=== PATIENT | male | born 1955 | race Caucasian/White ===

== ENCOUNTER 2018-02-12 00:28 | Inpatient (IN) | payer MEDICARE, BC ==
[2018-02-12] VITALS (73 sets, daily range): BP systolic 61–160; BP diastolic 34–116; BMI 27.7
[~2018-02-12] VITALS: Ht 172.7 cm; Wt 105.7 kg
--- NOTE | ~2018-02-12 | HEMODYNAMI ---
PATIENT:MIR ARMENTA MEDICAL RECORD: [id number] : 53 [id number] ADMISSION DATE: 02/12/18 Generatedon:02/12/20182:49 Patient name: MIR ARMENTA Patient #: [id number] SSN: DO B: 1955 Date of study: 02/12/2018 Page: Of Hemodynamic Procedure Report Patient Data Patient Demographics Procedure consent was obtained First Name: MIR Gender: Male Last Name: KATHI : 1955 [facility] Initial: STEFFANY Age: 62 year(s) Patient #: [id number] Race: Additional ID: [id number] Contact details Address: [address] [place] [address] State: [place] City: [place] Zip code: [address] Past Medical History Allergies: No known allergies Admission Admission Data Admission Date: 02/12/2018 Admission Time: 0:28 Admit Source: Emergency department Procedure Procedure Types Cath Procedure Diagnostic Procedure LHC LHC w/Coronaries Sedation Charges Moderate Sedation up to 30 minutes PCI Procedure AMI/SVG/SIDE PANEL PADDER PTCA or Stent AMI-BMS/DAMON Initial Procedure Description Procedure Date Procedure Date: 02/12/2018 Procedure Start Time: 1:27 Procedure End Time: 2:30 Procedure Staff Name Function Fernando Chang MD Performing Physician Marci So RT Monitor Aida Ornelas RT Scrub Deloris Arreola RN Nurse Procedure Data Cath Procedure Fluoroscopy Diagnostic fluoroscopy Total fluoroscopy Time: 9.6 time: 9.6 min min Diagnostic fluoroscopy Total fluoroscopy dose: 908 dose: 908 mGy mGy Contrast Material Contrast Material Type Amount (ml) Isovue 300 91 Entry Location Entry Primary Successful Side Size Upsize Upsize Entry Closure Succes sful Closure Location (Fr) 1 (Fr) 2 (Fr) Remarks Device Remarks Femoral Right 6 Fr Exoseal artery Short Estimated blood loss: 5 ml Diagnostic catheters Device Type Used For End Catheter Placement MULTIPACK JL 4.0 5Fr Left Coronary catheter Angiography MULTIPACK 3DRC 5Fr Right Coronary catheter Angiography DIAGNOSTIC IM 5Fr Multi-vessel catheter ([id number]) Angiography Procedure Complications No complications Procedure Medications Medication Administration Route Dosage 0.9% NaCl I.V. 100 ml/hr Oxygen etCO2 Nasal cannula 2 l/min Lidocaine 2% added to field 20 Heparin Flush Bag added to field 2 bags (1000units/500ml NS) Versed I.V. 2 mg Fentanyl I.V. 100 mcg Versed I.V. 2 mg Fentanyl I.V. 100 mcg Versed I.V. 2 mg Dopamine I.V. drip mcg/kg/min (400mg/250ml D5W) Heparin Bolus I.V. 8300 units Integrilin (Bolus I.V. 7.3 ml 2mg/ml) Neosynephrine I.V. drip 100 mcg/kg/min (20mg/250ml D5W) Dopamine I.V. drip 15 mcg/kg/min (400mg/250ml D5W) Versed I.V. 2 mg Integrilin Drip I.V. drip 6.5 ml/hr (75mg/100ml) Hemodynamics Rest Heart Rate: 33 (bpm) Snapshots Pre Cath Intra NCS Post Cath Vital Signs Time Heart Resp SPO2 etCO2 NIBP (mmHg) Rhythm Pain Sedation Rate (ipm) (%) (mmHg) Status Level (bpm) 1:23:00 36 29 98 32 72/41(65) NSR 0 (11) 10(A) , No pain 1:27:59 34 32 100 32.6 68/54(64) NSR 0 (11) 10(A) , No pain 1:29:23 32 30 100 33 Time NSR 0 (11) 10(A) Exceeded , No pain 1:35:50 79 24 100 34.3 Time NSR 0 (11) 10(A) Exceeded , No pain 1:42:11 68 32 98 34 75/46(67) Paced 0 (11) 10(A) , No pain 1:50:23 96 32 94 0 92/74(85) Paced 0 (11) 9(A) , No pain 1:55:22 106 20 98 0 Measuring Paced 0 (11) 2(A) , No pain 1:56:46 111 21 97 0 Time Paced 0 (11) 2(A) Exceeded , No pain 2:07:39 103 13 95 0 112/84(105) Paced 0 (11) 2(A) , No pain 2:11:47 57 20 90 0 125/85(113) Paced 0 (11) 2(A) , No pain 2:16:46 71 18 89 0 Measuring Paced 0 (11) 2(A) , No pain 2:18:08 39 16 91 0 Time Paced 0 (11) 2(A) Exceeded , No pain 2:23:07 129 20 97 0 Measuring Paced 0 (11) 2(A) , No pain 2:24:29 111 19 98 0 Time Paced 0 (11) 2(A) Exceeded , No pain 2:28:59 110 18 90 0 140/98(112) Paced 0 (11) 2(A) , No pain 2:36:30 86 17 91 0 92/64(74) Paced 0 (11) 2(A) , No pain 2:44:56 83 22 75 0 90/60(74) Paced 0 (11) 2(A) , No pain Medications Time Medication Route Dose Verified Delivered Reason N otes Effectiveness by by 1:26:31 0.9% NaCl I.V. 100 ml/hr Fernando Deloris used for Bernardo Arreola longshore equipment operator 1:26:39 Oxygen etCO2 2 l/min Fernando Deloris used for Nasal Bernardo Arreola procedure cannula RN 1:26:45 Lidocaine 2% added 20ml vial Fernando Fernando for local to Bernardo Chang MD anesthetic field 1:26:50 Heparin Flush added 2 bags Fernando Fernando used for Bag to Bernardo Chang MD procedure (1000units/500ml field NS) 1:26:58 Versed I.V. 2 mg Fernando Deloris for sedation Bernardo Arreola RN 1:27:04 Fentanyl I.V. 100 mcg Fernando Deloris for sedation Bernardo Arreola RN 1:32:37 Versed I.V. 2 mg Fernando Deloris for sedation Bernardo Arreola RN 1:32:48 Fentanyl I.V. 100 mcg Fernando Deloris for sedation Bernardo Arreola RN 1:37:11 Versed I.V. 2 mg Fernando Deloris for sedation Bernardo Arreola RN 1:42:06 Versed I.V. 2 mg Fernando Deloris for sedation Bernardo Arreola RN 1:46:43 Dopamine I.V. mcg/kg/min Fernando Deloris Per physician (400mg/250ml drip Bernardo Arreola D5W) RN 1:48:03 Heparin Bolus I.V. 8300 units Fernando Deloris for v erified Bernardo Arreola anticoagulation with Dr. ISMAEL Chang 1:50:16 Dopamine I.V. 15 Fernando Deloris Per physician (400mg/250ml drip mcg/kg/min Bernardo Arreola D5W) RN 2:25:27 Integrilin I.V. 7.3 ml Fernando Deloris for (Bolus 2mg/ml) Bernardo Arreola anticoagulation RN 2:25:42 Neosynephrine I.V. 100 Fernando Deloris Per physician (20mg/250ml D5W) drip mcg/kg/min Bernardo Arreola RN 2:44:27 Integrilin Drip I.V. 6.5 ml/hr Fernando Deloris for (75mg/100ml) andrew Arreola anticoagulation legal administrator Log Time Note 1:06:54 Informed consent obtained and on chart 1:07:11 Deloris Arreola RN sent for patient. Start room use. 1:07:12 Time tracking: Regular hours (M-F 7:00 - 5:00) 1:07:19 Plan of Care:Hemodynamics will remain stable., Cardiac rhythm will remain stable., Comfort level will be maintained., Respiratory function will remain adequate., Patient/ family verbilizes understanding of procedure., Procedure tolerated without complication., Recovers from procedure without complications.. 1:12:15 Diagnostic Cath Status : Emergency 1:12:24 Admit Source: Emergency department 1:15:16 Patient received from ED to CCL 1 Alert and oriented. Tansferred to table in Supine position. 1:15:17 Warm blankets applied, and prabhjot hugger turned on for patient comfort. 1:15:17 Correct patient and procedure confirmed by team. 1:15:18 ECG and BP/O2 sat monitors applied to patient. 1:21:43 Vital chart was started 1:21:44 Full Disclosure recording started 1:21:49 H&P Date Dictated: 02/12/2018 Within 30 days and on chart., H&P Addendum completed by physician on day of procedure. (MUST COMPLETE FOR ALL OUTPATIENTS). 1:21:51 Pre-procedure instructions explained to patient. 1::51 Pre-op teaching completed and patient verbalized understanding. 1::53 Family in patients room. 1::55 Patient NPO since Midnight. 1::49 Is the patient allergic to Iodine/contrast media? No. 1::51 Was the patient premedicated? No 1:24:18 Is patient on blood thinner?Yes 1:24:21 ACC The patient was administered the following blood thiners within the last 24 hours: ACCPlavix 1:24:24 Patient diabetic? Yes. 1:24:25 If diabetic: On Metformin? No 1:24:27 Previous problem with sedation/anesthesia? No ? 1:24:29 Snore? Yes 1:24:30 Sleep apnea? Yes 1:24:31 Deviated septum? No 1:24:32 Opens mouth fully? Yes 1:24:33 Sticks out tongue? Yes 1:24:37 Airway obstruction? Yes copd 1:24:40 Dentures? No ? 1:24:45 Pre procedure: right dorsailis pedis pulse 2+ Normal; easily identifiable; not easily obliterated 1::49 Pre procedure: left dorsailis pedis pulse 2+ Normal; easily identifiable; not easily obliterated 1::55 Patient pain scale 6/10 ?. 1:25:37 IV patent on arrival in left forearm with 0.9% NaCl at O. 1:25:40 Lab results completed and on chart. 1:25:45 Right groin area was prepped with chlora-prep and draped in sterile fashion 1:25:46 Alarms reviewed by R. N. 1:25:47 Sharps counted by scrub and verified by R.N. 1:25:50 Physician arrived 1:25:50 --------ALL STOP TIME OUT------ 1::51 Final Timeout: patient, procedure, and site verified with staff and physician. All members of the team are in agreement. 1:25:56 Right groin site verified by team. 1:26:00 Physical assessment completed. ASA score P 3 - A patient with severe systemic disease as per Fernando Chang MD. 1:26:05 Sedation plan: IV Moderate Sedation Medication:Versed, Fentanyl 1:26:13 Use device set Temporary Pacemaker 1:26:15 5Fr J Tip Temporary Pacing Catheter ([id number]) opened to sterile field. 1:26:15 2-0 Silk 685H opened to sterile field. 1:26:16 SHEATH 6FR Rule (KEB209) opened to sterile field. 1:26:31 0.9% NaCl 100 ml/hr I.V. was administered by Deloris Arreola RN; used for procedure; 1:26:39 Oxygen 2 l/min etCO2 Nasal cannula was administered by Deloris Arreola RN; used for procedure; 1:26:45 Lidocaine 2% 20ml vial added to field was administered by Fernando Chang MD; for local anesthetic; 1:26:50 Heparin Flush Bag (1000units/500ml NS) 2 bags added to field was administered by Fernando Chang MD; used for procedure; 1:26:58 Versed 2 mg I.V. was administered by Deloris Arreola RN; for sedation; 1:27:04 Fentanyl 100 mcg I.V. was administered by Deloris Arreola RN; for sedation; 1:27:36 Procedure started. 1:27:59 Local anesthetic to right femoral artery with Lidocaine 2% by Fernando Chang MD.INITIAL ACCESS ONLY 1:28:09 A 6 Fr Short sheath was inserted into the Right Femoral artery 1:29:54 Use device set Femoral Dx 1:29:56 ACIST Syringe (98314) opened to sterile field. 1:29:56 Bag Decanter (2002) opened to sterile field. 1:29:57 Medline Cath Pack ([id number]) opened to sterile field. 1:29:57 DIAGNOSTIC WIRE .035 260cm J wire (699465) opened to sterile field. 1:29:58 ACIST Hand Control (84867) opened to sterile field. 1:29:59 ACIST Manifold (46656) opened to sterile field. 1:29:59 DIAGNOSTIC Multipack 5Fr catheter set (VM3075) opened to sterile field. 1:30:00 Quick Combo opened to sterile field. 1:30:00 Tegaderm 4 x 4 (1626W) opened to sterile field. 1:30:15 SHEATH 6FR Rule (WLE673) opened to sterile field. 1:30:22 Temporary pacer inserted 1:30:40 Zero performed for pressure channel P1 1:30:46 Zero performed for pressure channel P1 1:31:38 Baseline sample Acquired. 1:32:37 Versed 2 mg I.V. was administered by Deloris Arreola RN; for sedation; 1:32:48 Fentanyl 100 mcg I.V. was administered by Deloris Arreola RN; for sedation; 1:34:22 Temporary pacer turned on with the following settings: Rate 80, MA 10, Mode: Demand. 1:36:20 A MULTIPACK JL 4.0 5Fr catheter was advanced over the wire and used for Left Coronary Angiography. 1:36:26 LCA angiography performed. 1:36:29 Injector settings: Ml/sec: 3, Volume: 6, 1:36:46 Catheter removed. 1:36:51 A MULTIPACK 3DRC 5Fr catheter was advanced over the wire and used for Right Coronary Angiography. 1:37:11 Versed 2 mg I.V. was administered by Deloris Arreola RN; for sedation; 1:37:45 RCA angiography performed. 1:37:48 Injector settings: Ml/sec: 3, Volume: 6, 1:38:34 Catheter removed. 1:39:12 GUIDE 6FR AR 1.0 catheter ([id number]) opened to sterile field. 1:39:13 TUBING High Pressure Extension Tubing (Chang) ([id number]) opened to sterile field. 1:39:14 BMW 300cm Boles 2 J wire (5413882Y) opened to sterile field. 1:39:15 INFLATOR Merit BasixCompak (LK6357) opened to sterile field. 1:39:29 A DIAGNOSTIC IM 5Fr catheter (310134R) was advanced over the wire and used for Multi-vessel Angiography. 1:39:53 MENDES angiography performed. 1:40:17 WHISPER 300cm guide wire (5826000PL) opened to sterile field. 1:40:32 Catheter removed. 1:42:06 Versed 2 mg I.V. was administered by Deloris Arreola RN; for sedation; 1:43:21 6 Fr ar 2 guide catheter was inserted over the wire 1:44:10 Guide Catheter removed. unable to cannulate vessel. 1:44:46 GUIDE 6FR AR 1.0 SH catheter ([id number]) opened to sterile field. 1:44:55 6 Fr ar 1 sh guide catheter was inserted over the wire 1:46:43 Dopamine (400mg/250ml D5W) mcg/kg/min I.V. drip was administered by Deloris Arreola RN; Per physician; 1:47:02 whisper wire advanced. 1:47:04 Wire advanced across lesion. 1:48:03 Heparin Bolus 8300 units I.V. was administered by Deloris Arreola RN; for anticoagulation; verified with Dr. Chang 1:49:19 Inflate balloon Inflation number: 1 A EMERGE OTW 3.0 x 20 balloon ([id number]) was prepped and advanced across the Prox RCA, then inflated to 12 BRANDI for 0:10 (min:sec). 1:50:04 Inflation number: 2 The EMERGE OTW 3.0 x 20 balloon ([id number]) was reinflated across the Prox RCA, to 12 BRANDI for 0:10 (min:sec). 1:50:16 Dopamine (400mg/250ml D5W) 15 mcg/kg/min I.V. drip was administered by Deloris Arreola RN; Per physician; 1:50:43 Inflation number: 1 The EMERGE OTW 3.0 x 20 balloon ([id number]) was reinflated across the Mid RCA, to 14 BRANDI for 0:10 (min:sec). 1:51:23 Inflation number: 2 The EMERGE OTW 3.0 x 20 balloon ([id number]) was reinflated across the Mid RCA, to 14 BRANDI for 0:10 (min:sec). 1:52:09 Temporary pacer turned on with the following settings: Rate 100, MA 10, Mode: Demand. 1:53:02 cpr started 1:58:38 code blue called 1:59:28 patient intubated;continuing cpr 2:03:06 1 mg epi given 2:03:55 cpr paused; 2:04:39 no pulse; cpr continued 2:08:14 cpr stopped; 2:08:57 RCA angiography performed. 2:09:01 Injector settings: Ml/sec: 3, Volume: 6, 2:10:31 Balloon removed over the wire. 2:13:09 Place stent Inflation Number: 3 A VERNA RX 3.0 x 26 stent ([id number]) was prepped and advanced across the Mid RCA. The stent was deployed at 14 BRANDI for 0:10 (min:sec). 2:13:46 Inflation number: 4 The stent balloon was then re-inflated across the Mid RCA to 14 BRANDI for 0:10 (min:sec). 2:16:24 cpr started 2:23:42 cpr paused; 2:25:27 Integrilin (Bolus 2mg/ml) 7.3 ml I.V. was administered by Deloris Arreloa RN; for anticoagulation; 2::42 Neosynephrine (20mg/250ml D5W) 100 mcg/kg/min I.V. drip was administered by Deloris Arreola RN; Per physician; 2::44 Stent catheter was removed intact over wire. 2::45 Wire removed. 2::46 Guide catheter removed. 2:25:54 EXOSEAL 6Fr (EX600) opened to sterile field. 2:26:26 Sheath removed intact; hemostasis achieved with Exoseal to the Right Femoral artery. 2::29 Procedure ended.(Physican Out) 2::41 Fluoroscopy time 09.60 minutes. 2::46 Flurop Dose total: 908 2::46 Fluoroscopy dose: 908 mGy 2:27:38 Temporary pacer turned on with the following settings: Rate 90, MA 10, Mode: Demand. 2:28:46 Contrast amount:Isovue 300 91ml. 2:28:47 Sharps counted by scrub and verified by R.N. 2:28:53 Insertion/operative site no bleeding no hematoma. 2:28:56 Post-op/insertion site Right Femoral artery dressed using a 4 x 4 and Tegaderm. 2:29:01 Estimated blood loss: 5 ml 2:29:02 Post procedure instruction explained to patient.Patient verbalizes understanding. 2:29:03 Patient needs reinforcement of post procedure teaching. 2:29:19 Procedure type changed to Cath procedure, Diagnostic procedure, LHC, LHC w/Coronaries, Sedation Charges, Moderate Sedation up to 30 minutes, PCI procedure, AMI/SVG/SIDE PANEL PADDER PTCA or Stent, AMI-BMS/DAMON Initial 2:29:20 Procedure and supply charges have been captured, reviewed, submitted and are correct. 2:29:37 Procedure Complication : No complications 2::41 Vital chart was stopped 2:29:43 See physician's report for complete and final results. 2:30:13 Report given to CVICU. 2:30:17 Patient transfered to CVICU with Stretcher. 2:30:19 Procedure ended. 2:30:19 Full Disclosure recording stopped 2:30:25 ACC-PCI Only Patient was given prescriptions, or instructed by Fernando Chang MD to start/continue the following medications upon discharge: Plavix 2:30:27 End room use (Document Last) 2:32:54 2-0 Silk 685H opened to sterile field. 2:44:27 Integrilin Drip (75mg/100ml) 6.5 ml/hr I.V. drip was administered by Deloris Arreola RN; for anticoagulation; Intervention Summary Intervention Notes Time ActionType Lesion and Equipment Used Action# Pressure Duration Attributes 1:49:19 Inflate Prox RCA EMERGE OTW 3.0 1 12 00:10 balloon x 20 balloon ([id number]) 1:50:04 Reinflate Prox RCA EMERGE OTW 3.0 2 12 00:10 balloon x 20 balloon ([id number]) 1:50:43 Reinflate Mid RCA EMERGE OTW 3.0 1 14 00:10 balloon x 20 balloon ([id number]) 1:51:23 Reinflate Mid RCA EMERGE OTW 3.0 2 14 00:10 balloon x 20 balloon ([id number]) 2:13:09 Place stent Mid RCA VERNA RX 3.0 x 3 14 00:10 26 stent ([id number]) 2:13:46 Reinflate Mid RCA VERNA RX 3.0 x 4 14 00:10 stent 26 stent balloon ([id number]) Device Usage Item Name Manufacture Quantity Catalog Number Hospital Part Current M inimal Lot# / Charge Number Stock Stock Serial# Code 5Fr J Tip Nina 1 [id number] 826132 35063 769965 2 Temporary Lifesciences Pacing Catheter ([id number]) 2-0 Silk 685H Ethicon 2 685H 798945 16296 624900 5 SHEATH 6FR Terumo 2 [id number] 746311 469914 258406 4 0 Rule (ADS144) ACIST Syringe Acist 1 98103 799673 939969 637727 2 0 (92176) Medical Systems Inc Bag Decanter Microtek 1 579056 17117 868540 5 () Medical Inc. Medline Cath Medline 1 [id number] 177713 05679 095801 5 Pack ([id number]) DIAGNOSTIC [place] 1 510881 253103 799899 229449 3 0 WIRE .035 260cm J wire (660687) ACIST Hand Acist 1 95051 346879 085653 945601 5 Control Medical (72456) Systems Inc ACIST Manifold Acist 1 48041 837113 562012 343213 5 (69220) Medical Systems Inc DIAGNOSTIC Cardinal 1 UL4202 672844 74417 872439 3 0 Multipack 5Fr Health catheter set (SF1815) Tegaderm 4 x 4 3M 1 1626W 917375 540930 118023 5 (1626W) MULTIPACK JL Cardinal 1 008485 5 4.0 5Fr Health catheter MULTIPACK 3DRC Cardinal 1 059292 5 5Fr catheter Health GUIDE 6FR AR Medtronic 1 [id number] 215608 45913 240356 1 1.0 catheter (KX6DJ04) TUBING High Merit 1 HR1293T 942301 63767 504282 1 0 Pressure Medical Extension Tubing (Chang) (VR6991X) BMW 300cm Pedersen 1 [id number] 234797 240763 391235 5 Boles 2 J Vascular wire (3732776W) INFLATOR Merit Merit 1 AT9565 467230 102151 462871 1 5 [facility] (BG7066) DIAGNOSTIC IM Cardinal 1 698745J 161636 130026 956017 5 5Fr catheter Health (048638D) WHISPER 300cm Pedersen 1 7274313GS 851893 936408 501731 5 guide wire Vascular (9152166GX) GUIDE 6FR AR Medtronic 1 [id number] 646983 69287 913890 1 1.0 SH catheter ([id number]) EMERGE OTW 3.0 [place] 1 [id number] 150572 534350 605802 5 81395450 x 20 balloon Scientific ([id number]) VERNA RX 3.0 x Medtronic 1 [id number] 839357 5340433 664238 5 [id number] 26 stent ([id number]) EXOSEAL 6Fr Cardinal 1 EX600 914984 251119 904265 1 0 (EX600) Azuki Systems 1 83041-627594 838984 215992 311140 5 Signature Audit Conway Stage Time Signature Unsigned Intra-Procedure 02/12/2018 Marci So 2:49:38 AM RT(R) Signatures Monitor : Marci So RT Signature : Date : Time : [address] [place] [address]
[~2018-02-12 00:28] MED LIST: ASPIRIN325 MG PO; BUPROPION XL300 MG PO; CELEXA10 MG PO; COREG6.25 MG PO; DYAZIDE 37.5/251 CAP PO; LIPITOR20 MG PO; NORVASC5 MG PO; PLAVIX75 MG PO; RANEXA500 MG PO; WELLBUTRIN XL150 M1 PO; ZYRTEC10 MG; ZYRTEC10 MG PO
[2018-02-12 00:54] LABS: HEMATOCRIT 44.8 % (42.0-54.0); HEMOGLOBIN 15.2 g/dL (13.5-17.5); LYMPHOCYTES 21.8 % (15-50); MCH 31.1 pg (26.0-34.0); MCHC 33.9 g/dL (31.0-37.0); MCV 91.8 fL (80.0-100.0); MEAN PLATELET VOLUME 10.2 fL (7.4-10.4); NEUTROPHILS 65.3 % (40-80); PLATELET COUNT 242 10x3/uL (130-400); RBC 4.88 10x6/uL (4.20-6.10); RDW 13.2 % (11.5-14.5); WBC 12.9 10x3/uL (4.8-10.8)
[2018-02-12 01:05] LABS: APTT 21.8 SECONDS (22.8-39.4); INR 1.04 (0.85-1.17); PROTIME 13.1 SECONDS (11.6-15.0)
[2018-02-12 01:34] LABS: ALBUMIN 3.3 g/dL (3.4-5.0); CALCIUM 8.6 mg/dL (8.5-10.1); CKMB 112.3 U/L (0.0-3.6); CREATININE - SERUM 1.8 mg/dL (0.6-1.3); PROTEIN - SERUM 6.8 g/dL (6.4-8.2)
[2018-02-12 01:39] LABS: POTASSIUM - SERUM 6.2 mmol/L (3.5-5.1); TROPONIN-I 17.823 ng/mL (0.000-0.060)
[2018-02-12 01:53] LABS: ANION GAP 27.8 mmol/L (8-16); BILIRUBIN - TOTAL 0.53 mg/dL (0.2-1.3); CARBON DIOXIDE 14.4 mmol/L (21.0-32.0)
[2018-02-12 08:00] LABS: BASOPHILS 0.2 % (0-2); EOSINOPHILS 0 % (0-7); HEMATOCRIT 44.2 % (42.0-54.0); HEMOGLOBIN 15.2 g/dL (13.5-17.5); IMMATURE GRANULOCYTES 1.4 % (0-5); LYMPHOCYTES 11.3 % (15-50); MCH 31.6 pg (26.0-34.0); MCHC 34.4 g/dL (31.0-37.0); MCV 91.9 fL (80.0-100.0); MONOCYTES 8.1 % (2-11); PLATELET COUNT 277 10x3/uL (130-400); RBC 4.81 10x6/uL (4.20-6.10); RDW 13.9 % (11.5-14.5)
[2018-02-12 08:02] LABS: WBC 5.6 10x3/uL (4.8-10.8)
[2018-02-12 08:07] LABS: CALCIUM 7.1 mg/dL (8.5-10.1); CREATININE - SERUM 1.8 mg/dL (0.6-1.3)
[2018-02-12 08:08] LABS: ANION GAP 18.6 mmol/L (8-16); CARBON DIOXIDE 22.2 mmol/L (21.0-32.0); POTASSIUM - SERUM 3.8 mmol/L (3.5-5.1)
[2018-02-12 12:38] LABS: MAGNESIUM - SERUM 1.9 mg/dL (1.8-2.4)
[2018-02-13] VITALS (87 sets, daily range): BP systolic 92–149; BP diastolic 56–88; BMI 27.0
[2018-02-13 05:06] LABS: BASOPHILS 0.1 % (0-2); EOSINOPHILS 0 % (0-7); HEMATOCRIT 37.7 % (42.0-54.0); HEMOGLOBIN 13.3 g/dL (13.5-17.5); IMMATURE GRANULOCYTES 0.2 % (0-5); LYMPHOCYTES 17.5 % (15-50); MCH 32.8 pg (26.0-34.0); MCHC 35.3 g/dL (31.0-37.0); MCV 92.9 fL (80.0-100.0); MEAN PLATELET VOLUME 10.9 fL (7.4-10.4); MONOCYTES 14.8 % (2-11); NEUTROPHILS 67.4 % (40-80); RBC 4.06 10x6/uL (4.20-6.10); RDW 13.9 % (11.5-14.5)
[2018-02-13 05:14] LABS: PLATELET COUNT 214 10x3/uL (130-400); WBC 8.5 10x3/uL (4.8-10.8)
[2018-02-13 06:07] LABS: CREATININE - SERUM 1.8 mg/dL (0.6-1.3)
[2018-02-13 06:08] LABS: ANION GAP 14.6 mmol/L (8-16); CARBON DIOXIDE 32.4 mmol/L (21.0-32.0)
[2018-02-13 06:09] LABS: ALBUMIN 2.3 g/dL (3.4-5.0); BILIRUBIN - TOTAL 0.67 mg/dL (0.2-1.3); MAGNESIUM - SERUM 1.1 mg/dL (1.8-2.4); PROTEIN - SERUM 4.8 g/dL (6.4-8.2)
[2018-02-13 06:10] LABS: CALCIUM 6.2 mg/dL (8.5-10.1)
--- NOTE | 2018-02-13 16:16 | MORECARE ---
CASE MANAGEMENT DISCHARGE SUMMARY PATIENT: MIR ARMENTA UNIT: [id number] ADM DATE: 02/12/18 AGE: 62 : [birth year] SEX: M [facility] AUTHOR: PATRICIO MURPHY PHYSICIAN: REFERRING PHYSICIAN: ARPIT UREÑA M.D. DATE OF SERVICE: 02/13/18 Discharge Plan Patient Name: MIR ARMENTA Facility: [facility]:[place] : 1955 Planned Disposition: Anticipated Discharge Date: Discharge Date: Expected LOS: Initial Reviewer: [email or web address] Initial Review Date: 02/12/2018 Generated: 02/13/18 5:16 pm Patient Name: MIR ARMENTA Page [id number] at 1616 All edits/amendments must be made on the electronic document DICTATION DATE: 02/13/181615 FILM PROCESSOR: JAISON 02/13/181615 RPT#: [id number] DC DATE: STATUS: ADM IN [facility] [address] [place] [address] END OF REPORT
[2018-02-14] VITALS (47 sets, daily range): BP systolic 96–145; BP diastolic 61–87; Ht 172.7 cm; Wt 105.7 kg
[2018-02-14 05:13] LABS: BASOPHILS 0.1 % (0-2); EOSINOPHILS 0.2 % (0-7); IMMATURE GRANULOCYTES 0.2 % (0-5); LYMPHOCYTES 18.9 % (15-50); MCH 33.1 pg (26.0-34.0); MCHC 35.9 g/dL (31.0-37.0); MCV 92.4 fL (80.0-100.0); MEAN PLATELET VOLUME 11.3 fL (7.4-10.4); MONOCYTES 13.5 % (2-11); NEUTROPHILS 67.1 % (40-80); RDW 13.8 % (11.5-14.5); WBC 8.1 10x3/uL (4.8-10.8)
[2018-02-14 05:18] LABS: HEMOGLOBIN 10.4 g/dL (13.5-17.5); PLATELET COUNT 138 10x3/uL (130-400); RBC 3.14 10x6/uL (4.20-6.10)
[2018-02-14 07:39] LABS: CREATININE - SERUM 1.2 mg/dL (0.6-1.3)
[2018-02-14 07:40] LABS: ANION GAP 11.7 mmol/L (8-16); BILIRUBIN - TOTAL 1.18 mg/dL (0.2-1.3); CARBON DIOXIDE 28.7 mmol/L (21.0-32.0); POTASSIUM - SERUM 3.4 mmol/L (3.5-5.1)
[2018-02-14 07:41] LABS: PROTEIN - SERUM 4.7 g/dL (6.4-8.2)
[2018-02-14 07:42] LABS: MAGNESIUM - SERUM 1.8 mg/dL (1.8-2.4)
--- NOTE | 2018-02-14 13:39 | CN ---
PATIENT NAME:MIR ARMENTA MEDICAL RECORD: [id number] : 53 LOCATION:[facility] ADMIT DATE: 02/12/18 ACCOUNT: [id number] CONSULTING PHYSICIAN: ADRIANA WHITT MD REFERRING PHYSICIAN: ARPIT CHANG M.D. DATE OF CONSULTATION: 02/12/2018 CONSULT REQUESTING PHYSICIAN: Fernando Chang MD REASON FOR CONSULTATION: Vent management, cardiogenic shock. HISTORY OF PRESENT ILLNESS: Mr. Armenta is a 62-year-old gentleman who was brought into the ER with chest pain. The patient became bradycardic and a pacemaker was put in by Dr. Chang. The patient was taken to the cardiac porcelain enamel laborer and the patient is RCA stented. Since then, the patient has coded twice last night. I was called for the vent management and the patient's severe metabolic as well as respiratory acidosis. REVIEW OF SYSTEMS: The detail is not obtainable. PAST MEDICAL HISTORY: 1. Coronary artery disease. 2. Hypertension. 3. Hyperlipidemia. 4. Diabetes mellitus. PAST SURGICAL HISTORY: He has a CABG, resection of left shoulder in 2002. ALLERGIES: There are no known drug allergy. MEDICATIONS: On AudienceView is reviewed. PERSONAL AND SOCIAL HISTORY: The detail is not obtainable. FAMILY HISTORY: Not obtainable. PHYSICAL EXAMINATION: GENERAL: Now, the patient is orally intubated and sedated. VITAL SIGNS: The blood pressure is 112/71, pulse is 88, respiration is 20, temperature is 97.7, earlier his systolic blood pressure was 76/43. HEENT: Conjunctivae are pink. Sclerae are not icteric. NECK: Supple, no JVD. CHEST: The chest excursion is equal on both sides. There is no wheeze, no rales. HEART: Rhythm regular, normal sound, no murmur. ABDOMEN: Soft, bowel sounds present. No hepatosplenomegaly. RECTAL: Deferred. EXTREMITIES: No cyanosis, no clubbing, no pedal edema. CENTRAL NERVOUS SYSTEM: The patient is orally intubated and sedated. There is no obvious cranial nerve abnormality. LABORATORY DATA: CBC: The WBC is 12.9, hemoglobin 15.2, hematocrit 44.8, the platelet count 242. Chemistry: Sodium 142; potassium 3.8, initially the potassium was 6.2. The BUN is 21, creatinine 1.8. The bicarbonate is 18.60. The blood sugar level is 217. The troponin is 17.8. CK-MB is 14. Albumin is CONSULT REPORT [id number] MIR ARMENTA 3.3. ABG: The pH is 7.17, pCO2 was 50.6, the pO2 was 60, bicarbonate is 18.7. CHEST RADIOGRAPH: There is infiltrate in right middle lobe, right lower lobe, and right upper lobe. There is a left pleural effusion. RECOMMENDATION: 1. Continue mechanical ventilation, assist control, adjust the setting to keep the peak airway pressure below 40. 2. DVT and GI bleed prophylaxis. 3. Start empiric Zosyn. 4. Check the blood cultures, sputum culture, and urine culture. 5. Bicarbonate drip. 6. Pressor to keep the systolic blood pressure above 90. Dr. Chang, thank you for involving me in the care of Mr. Armenta. CRITICAL CARE TIME: 1 hour. TRANSINT:[id number] Voice Confirmation ID: [id number] DOCUMENT ID: [id number] ADRIANA WHITT MD at 1339 CC: [id number] DICTATION DATE: 02/12/18 1140 ENGINE MAINTENANCE MECHANIC: 02/12/18 1256 ADM [address] [place] [address]
[2018-02-15] VITALS (23 sets, daily range): BP systolic 108–134; BP diastolic 61–79
[2018-02-15 05:22] LABS: BASOPHILS 0.1 % (0-2); EOSINOPHILS 0.2 % (0-7); HEMATOCRIT 33.7 % (42.0-54.0); HEMOGLOBIN 12.1 g/dL (13.5-17.5); IMMATURE GRANULOCYTES 0.5 % (0-5); LYMPHOCYTES 12.5 % (15-50); MCH 32.8 pg (26.0-34.0); MCHC 35.9 g/dL (31.0-37.0); MCV 91.3 fL (80.0-100.0); MEAN PLATELET VOLUME 11.5 fL (7.4-10.4); MONOCYTES 11.2 % (2-11); NEUTROPHILS 75.5 % (40-80); PLATELET COUNT 160 10x3/uL (130-400); RBC 3.69 10x6/uL (4.20-6.10); RDW 13.9 % (11.5-14.5); WBC 8.8 10x3/uL (4.8-10.8)
[2018-02-15 05:33] LABS: ALBUMIN 1.9 g/dL (3.4-5.0); ANION GAP 12.2 mmol/L (8-16); BILIRUBIN - TOTAL 1.43 mg/dL (0.2-1.3); CARBON DIOXIDE 28.2 mmol/L (21.0-32.0); POTASSIUM - SERUM 3.4 mmol/L (3.5-5.1)
[2018-02-15 05:34] LABS: CREATININE - SERUM 1.1 mg/dL (0.6-1.3); PROTEIN - SERUM 5.3 g/dL (6.4-8.2)
[2018-02-15 05:35] LABS: CALCIUM 7.2 mg/dL (8.5-10.1)
[2018-02-16] VITALS (24 sets, daily range): BP systolic 98–134; BP diastolic 55–76
[2018-02-16 05:49] LABS: BASOPHILS 0.3 % (0-2); EOSINOPHILS 1.7 % (0-7); HEMOGLOBIN 11.7 g/dL (13.5-17.5); IMMATURE GRANULOCYTES 1.9 % (0-5); LYMPHOCYTES 16.8 % (15-50); MCH 31.9 pg (26.0-34.0); MCHC 34.4 g/dL (31.0-37.0); MCV 92.6 fL (80.0-100.0); MONOCYTES 11.9 % (2-11); NEUTROPHILS 67.4 % (40-80); PLATELET COUNT 169 10x3/uL (130-400); RBC 3.67 10x6/uL (4.20-6.10); RDW 14.2 % (11.5-14.5); WBC 8.8 10x3/uL (4.8-10.8)
[2018-02-16 07:01] LABS: CREATININE - SERUM 1.1 mg/dL (0.6-1.3); MAGNESIUM - SERUM 1.9 mg/dL (1.8-2.4); POTASSIUM - SERUM 3.7 mmol/L (3.5-5.1)
[2018-02-16 07:02] LABS: BILIRUBIN - TOTAL 1.46 mg/dL (0.2-1.3); CARBON DIOXIDE 27.7 mmol/L (21.0-32.0)
[2018-02-16 07:03] LABS: CALCIUM 6.7 mg/dL (8.5-10.1); PROTEIN - SERUM 5.1 g/dL (6.4-8.2)
[2018-02-17] VITALS (28 sets, daily range): BP systolic 94–120; BP diastolic 51–75
[2018-02-17 04:40] LABS: BASOPHILS 0.2 % (0-2); EOSINOPHILS 2.9 % (0-7); HEMATOCRIT 33.3 % (42.0-54.0); HEMOGLOBIN 11.3 g/dL (13.5-17.5); IMMATURE GRANULOCYTES 3.7 % (0-5); LYMPHOCYTES 18.8 % (15-50); MCH 31.7 pg (26.0-34.0); MCHC 33.9 g/dL (31.0-37.0); MCV 93.3 fL (80.0-100.0); MEAN PLATELET VOLUME 11.5 fL (7.4-10.4); MONOCYTES 11.9 % (2-11); NEUTROPHILS 62.5 % (40-80); PLATELET COUNT 174 10x3/uL (130-400); RBC 3.57 10x6/uL (4.20-6.10); RDW 14.6 % (11.5-14.5)
[2018-02-17 04:57] LABS: ALBUMIN 1.8 g/dL (3.4-5.0); BILIRUBIN - TOTAL 1.41 mg/dL (0.2-1.3); CALCIUM 7.1 mg/dL (8.5-10.1); CARBON DIOXIDE 26.4 mmol/L (21.0-32.0); CREATININE - SERUM 1.3 mg/dL (0.6-1.3); MAGNESIUM - SERUM 1.8 mg/dL (1.8-2.4); POTASSIUM - SERUM 3.4 mmol/L (3.5-5.1); PROTEIN - SERUM 5.8 g/dL (6.4-8.2)
[2018-02-18] VITALS (29 sets, daily range): BP systolic 103–132; BP diastolic 62–79
[2018-02-18 10:16] LABS: BASOPHILS 0.4 % (0-2); EOSINOPHILS 4.2 % (0-7); HEMATOCRIT 33.5 % (42.0-54.0); HEMOGLOBIN 11.2 g/dL (13.5-17.5); IMMATURE GRANULOCYTES 5.1 % (0-5); LYMPHOCYTES 18.9 % (15-50); MCH 31.3 pg (26.0-34.0); MCHC 33.4 g/dL (31.0-37.0); MCV 93.6 fL (80.0-100.0); MEAN PLATELET VOLUME 11.8 fL (7.4-10.4); MONOCYTES 12.4 % (2-11); PLATELET COUNT 202 10x3/uL (130-400); RBC 3.58 10x6/uL (4.20-6.10); RDW 15.1 % (11.5-14.5); WBC 8.6 10x3/uL (4.8-10.8)
[2018-02-18 10:25] LABS: ANION GAP 15.6 mmol/L (8-16); CALCIUM 7.5 mg/dL (8.5-10.1); CARBON DIOXIDE 24.8 mmol/L (21.0-32.0); CREATININE - SERUM 1.1 mg/dL (0.6-1.3); POTASSIUM - SERUM 3.4 mmol/L (3.5-5.1)
[2018-02-19] VITALS (26 sets, daily range): BP systolic 91–135; BP diastolic 55–73
[2018-02-19 07:54] LABS: BASOPHILS 0.4 % (0-2); EOSINOPHILS 3.9 % (0-7); HEMATOCRIT 33.7 % (42.0-54.0); HEMOGLOBIN 11.3 g/dL (13.5-17.5); IMMATURE GRANULOCYTES 4.2 % (0-5); LYMPHOCYTES 15.2 % (15-50); MCH 31.3 pg (26.0-34.0); MCHC 33.5 g/dL (31.0-37.0); MCV 93.4 fL (80.0-100.0); MEAN PLATELET VOLUME 11.7 fL (7.4-10.4); MONOCYTES 13.4 % (2-11); NEUTROPHILS 62.9 % (40-80); PLATELET COUNT 242 10x3/uL (130-400); RBC 3.61 10x6/uL (4.20-6.10); RDW 15.4 % (11.5-14.5); WBC 9.6 10x3/uL (4.8-10.8)
[2018-02-19 08:06] LABS: CALC OSMOLALITY 278 mosm/kg (275-300); CARBON DIOXIDE 24.5 mmol/L (21.0-32.0); CHLORIDE - SERUM 101 mmol/L (98-107); GLUCOSE 143 mg/dL (74-106); MAGNESIUM - SERUM 1.9 mg/dL (1.8-2.4); PHOSPHOROUS 3.4 mg/dL (2.5-4.9); POTASSIUM - SERUM 3.1 mmol/L (3.5-5.1); SODIUM 138 mmol/L (136-145); UREA NITROGEN 15 mg/dL (7-18); eGFR NON AFRICAN AMERICAN 80 mL/min (90-120)
[2018-02-19 20:07] LABS: ACID FAST SMEAR Negative (()); AFB SPECIMEN PROCESSING Concentration (())
[2018-02-20] VITALS (45 sets, daily range): BP systolic 84–134; BP diastolic 49–78
[2018-02-20 04:24] LABS: BASOPHILS 0.4 % (0-2); EOSINOPHILS 3.6 % (0-7); HEMATOCRIT 36.9 % (42.0-54.0); IMMATURE GRANULOCYTES 5.4 % (0-5); LYMPHOCYTES 13.4 % (15-50); MCH 31.4 pg (26.0-34.0); MCHC 32.5 g/dL (31.0-37.0); MCV 96.6 fL (80.0-100.0); MEAN PLATELET VOLUME 11.5 fL (7.4-10.4); MONOCYTES 10.9 % (2-11); NEUTROPHILS 66.3 % (40-80); PLATELET COUNT 334 10x3/uL (130-400); RBC 3.82 10x6/uL (4.20-6.10); WBC 13.9 10x3/uL (4.8-10.8)
[2018-02-20 04:44] LABS: ANION GAP 14.9 mmol/L (8-16); CALCIUM 8.2 mg/dL (8.5-10.1); CARBON DIOXIDE 24.6 mmol/L (21.0-32.0); CREATININE - SERUM 1.1 mg/dL (0.6-1.3); MAGNESIUM - SERUM 2.1 mg/dL (1.8-2.4); POTASSIUM - SERUM 4.5 mmol/L (3.5-5.1)
[2018-02-20 04:47] LABS: PHOSPHOROUS 5.2 mg/dL (2.5-4.9)
[2018-02-20 13:18] LABS: FUNGUS STAIN Final report (())
[2018-02-21] VITALS (24 sets, daily range): BP systolic 86–124; BP diastolic 48–75
[2018-02-21 06:18] LABS: BASOPHILS 0.2 % (0-2); EOSINOPHILS 1.1 % (0-7); HEMATOCRIT 33.6 % (42.0-54.0); IMMATURE GRANULOCYTES 1.9 % (0-5); LYMPHOCYTES 4.5 % (15-50); MCH 31.6 pg (26.0-34.0); MCHC 32.7 g/dL (31.0-37.0); MCV 96.6 fL (80.0-100.0); MEAN PLATELET VOLUME 11.6 fL (7.4-10.4); MONOCYTES 11.7 % (2-11); NEUTROPHILS 80.6 % (40-80); PLATELET COUNT 306 10x3/uL (130-400); RBC 3.48 10x6/uL (4.20-6.10); RDW 16.1 % (11.5-14.5); WBC 15.9 10x3/uL (4.8-10.8)
[2018-02-21 07:06] LABS: ANION GAP 19.5 mmol/L (8-16); CARBON DIOXIDE 21.5 mmol/L (21.0-32.0); CREATININE - SERUM 1.8 mg/dL (0.6-1.3)
[2018-02-21 07:07] LABS: ALBUMIN 2.2 g/dL (3.4-5.0); BILIRUBIN - TOTAL 1.07 mg/dL (0.2-1.3); CALCIUM 7.7 mg/dL (8.5-10.1); PROTEIN - SERUM 5.1 g/dL (6.4-8.2)
--- NOTE | 2018-02-21 11:07 | MORECARE ---
CASE MANAGEMENT DISCHARGE SUMMARY PATIENT: MIR ARMENTA UNIT: [id number] ADM DATE: 02/12/18 AGE: 62 : 54 SEX: M ROOM/BED: D[facility] AUTHOR: PATRICIO MURPHY PHYSICIAN: REFERRING PHYSICIAN: ARPIT UREÑA M.D. DATE OF SERVICE: 02/21/18 Discharge Plan Patient Name: MIR ARMENTA [facility] [facility] 1955 Planned Disposition: Anticipated Discharge Date: Discharge Date: Expected LOS: Initial Reviewer: [email or web address] Initial Review Date: 02/21/2018 Generated: 02/21/18 12:07 pm DCPIA - Discharge Planning Initial Assessment Updated by [email or web address]: Rosa Karimi on 02/21/18 11:02 am * Is the patient Alert and Oriented? No * How many steps to enter\exit or inside your home? * PCP Tonja * Pharmacy [facility] * Preadmission Environment Home with Family * ADLs Independent * Equipment None * List name and contact numbers for known caregivers / representatives who currently or will assist patient after discharge: Anitra Armenta [phone], * Verbal permission to speak to the caregivers and representatives has been obtained from the patient. N/A * Community resources currently utilized None * Additional services required to return to the preadmission environment? No * Can the patient safely return to the preadmission environment? Yes * Has this patient been hospitalized within the prior 30 days at any hospital? No Last DP export: 02/13/18 3:16 Patient Name: MIR ARMENTA Page 01012 at 1107 All edits/amendments must be made on the electronic document DICTATION DATE: 02/21/181106 HOSPITAL SCIENTIST: JAISON 02/21/18 1107 RPT#: [id number] DC DATE: STATUS: ADM IN [facility] [address] [place] [address] END OF REPORT
--- NOTE | 2018-02-21 11:15 | MORECARE ---
CASE MANAGEMENT DISCHARGE SUMMARY PATIENT: MIR ARMENTA UNIT: [id number] ADM DATE: 02/12/18 AGE: 62 : 53 SEX: M ROOM/BED: D.[facility] AUTHOR: KATHERINE,DOC PHYSICIAN: REFERRING PHYSICIAN: ARPIT UREÑA M.D. DATE OF SERVICE: 02/21/18 Discharge Plan Patient Name: MIR ARMENTA Facility: [facility]:[place] : 1955 Planned Disposition: Anticipated Discharge Date: Discharge Date: Expected LOS: Initial Reviewer: [email or web address] Initial Review Date: 02/21/2018 Generated: 02/21/18 12:15 pm Comments DCP- Discharge Planning Updated by [email or web address]: Rosa Karimi on 02/21/18 10:[address] Patient Name: MIR ARMENTA Admission Status: ER Accout number: [id number] Admission Date: 02-12-2018 : 1955 Admission Diagnosis:STEMI INVOLVING OTH CORONARY ARTERY OF INFERIOR WALL Attending: ARPIT UREÑA Current LOS: 9 Anticipated DC Date: Planned Disposition: Primary Insurance: MEDICARE A & B Discharge Planning Comments: CM met with and daughter at bedside. Patient is currently on vent and sedated. Patient lived at home with his and was independent of all daily activities. Uncertain at this point what discharge disposition will be LTACH/ Rehab/ SNF? CM will continue to follow and assist as needed with discharge planning / needs. Skin Former: Rosa Karimi DCPIA - Discharge Planning Initial Assessment Updated by [email or web address]: Rosa Karimi on 02/21/18 11:02 am * Is the patient Alert and Oriented? No * How many steps to enter\exit or inside your home? * PCP Tonja * Pharmacy [facility] * Preadmission Environment Home with Family * ADLs Independent * Equipment None * List name and contact numbers for known caregivers / representatives who currently or will assist patient after discharge: Anitra Armenta [phone], * Verbal permission to speak to the caregivers and representatives has been obtained from the patient. N/A * Community resources currently utilized None * Additional services required to return to the preadmission environment? No * Can the patient safely return to the preadmission environment? Yes * Has this patient been hospitalized within the prior 30 days at any hospital? No Last DP export: 02/21/18 10:07 Patient Name: MIR ARMENTA Page 97383 at 1115 All edits/amendments must be made on the electronic document DICTATION DATE: 02/21/181114 RACE CAR MECHANIC: JAISON 02/21/181114 RPT#: [id number] DC DATE: STATUS: ADM IN [facility] [address] [place] [address] END OF REPORT
[2018-02-22] VITALS (33 sets, daily range): BP systolic 84–113; BP diastolic 46–61
[2018-02-22 06:32] LABS: BASOPHILS 0.2 % (0-2); EOSINOPHILS 0.9 % (0-7); HEMATOCRIT 30.2 % (42.0-54.0); IMMATURE GRANULOCYTES 0.7 % (0-5); LYMPHOCYTES 6.5 % (15-50); MCH 31.3 pg (26.0-34.0); MCHC 33.1 g/dL (31.0-37.0); MONOCYTES 9.6 % (2-11); NEUTROPHILS 82.1 % (40-80); PLATELET COUNT 291 10x3/uL (130-400); WBC 17.2 10x3/uL (4.8-10.8)
[2018-02-22 06:36] LABS: MCV 94.4 fL (80.0-100.0)
[2018-02-22 06:59] LABS: ANION GAP 19.5 mmol/L (8-16); BILIRUBIN - TOTAL 1.62 mg/dL (0.2-1.3); CALCIUM 7.6 mg/dL (8.5-10.1); CARBON DIOXIDE 19.2 mmol/L (21.0-32.0); CREATININE - SERUM 2.3 mg/dL (0.6-1.3); POTASSIUM - SERUM 4.7 mmol/L (3.5-5.1)
[2018-02-22 07:00] LABS: ALBUMIN 1.8 g/dL (3.4-5.0); PROTEIN - SERUM 4.8 g/dL (6.4-8.2)
[2018-02-22 07:01] LABS: MAGNESIUM - SERUM 2.2 mg/dL (1.8-2.4)
[2018-02-22 13:08] LABS: APPEARANCE HAZY (CLEAR); BILIRUBIN NEGATIVE (NEGATIVE); COLOR DK YELLOW (YELLOW); GLUCOSE NEGATIVE (NEGATIVE); KETONE SMALL mg/dL (NEGATIVE); NITRITE NEGATIVE (NEGATIVE); PROTEIN 1+ mg/dL (NEGATIVE); UROBILINOGEN NORMAL (NORMAL)
[2018-02-22 13:14] LABS: BACTERIA MODERATE /hpf (NONE SEEN); EPITHELIAL CELLS 0-5 /hpf (0-5); GRANULAR CAST RARE /lpf (NONE SEEN); HYALINE CAST RARE /lpf (NONE SEEN); RED CELLS - URINE 0-5 /hpf (0-5); WHITE CELLS - URINE 0-5 /hpf (0-5); YEAST >1+ /hpf (NONE SEEN)
[2018-02-22 13:15] LABS: AMORPHOUS SEDIMENT >1+ /lpf (NONE SEEN); CALCIUM OXALATE CRYSTALS OCC /hpf (NONE SEEN)
[2018-02-22 13:17] LABS: CREATININE - URINE 224.3 mg/dL (30-125); POTASSIUM - URINE 65.5 MMOL/L (12.0-62.0); PROTEIN - URINE 132.3 mg/dL (0.0-11.9)
[2018-02-23] VITALS (68 sets, daily range): BP systolic 82–136; BP diastolic 46–67
[2018-02-23 06:11] LABS: BASOPHILS 0.1 % (0-2); EOSINOPHILS 0.3 % (0-7); HEMOGLOBIN 9.7 g/dL (13.5-17.5); LYMPHOCYTES 2.8 % (15-50); MCH 31.3 pg (26.0-34.0); MCHC 33.4 g/dL (31.0-37.0); MCV 93.5 fL (80.0-100.0); MEAN PLATELET VOLUME 10.7 fL (7.4-10.4); MONOCYTES 11.9 % (2-11); NEUTROPHILS 83.9 % (40-80); PLATELET COUNT 319 10x3/uL (130-400); WBC 17.4 10x3/uL (4.8-10.8)
[2018-02-23 06:31] LABS: ALBUMIN 1.5 g/dL (3.4-5.0); BILIRUBIN - TOTAL 2.34 mg/dL (0.2-1.3); CALCIUM 8.2 mg/dL (8.5-10.1); CARBON DIOXIDE 18.2 mmol/L (21.0-32.0); MAGNESIUM - SERUM 2.3 mg/dL (1.8-2.4)
[2018-02-23 06:32] LABS: ANION GAP 21.5 mmol/L (8-16); CREATININE - SERUM 3.5 mg/dL (0.6-1.3); POTASSIUM - SERUM 5.7 mmol/L (3.5-5.1); PROTEIN - SERUM 6.4 g/dL (6.4-8.2)
[2018-02-23 09:13] LABS: OSMOLALITY - URINE 346 (())
[2018-02-23 13:14] LABS: ANION GAP 19.8 mmol/L (8-16); CALCIUM 8.1 mg/dL (8.5-10.1); CARBON DIOXIDE 18.5 mmol/L (21.0-32.0); CREATININE - SERUM 4.1 mg/dL (0.6-1.3); POTASSIUM - SERUM 5.3 mmol/L (3.5-5.1)
--- NOTE | 2018-02-23 17:51 | OP ---
PATIENT NAME: MIR ARMENTA MEDICAL RECORD: [id number] :53 LOCATION:D.[facility] D.CV01 ADMISSION DATE:02/12/18 SURGEON: KHADIJAH ARMSTRONG MD DATE OF OPERATION: 02/22/2018 PREOPERATIVE DIAGNOSES: 1. Ventilatory failure. 2. Leukocytosis. 3. Outdated central venous line. 4. History of acute inferior NV. POSTOPERATIVE DIAGNOSES: 1. Ventilatory failure. 2. Leukocytosis. 3. Outdated central venous line. 4. History of acute inferior NV. PROCEDURE: Insertion of left 16-cm supraclavicular subclavian central venous catheter. SURGEON: Khadijah Armstrong MD DRAW TENDER: None. BLOOD LOSS: Minimal. ANESTHESIA: Local. COMPLICATIONS: None. The risks, possible complications and alternatives to the procedure were explained to the patient's family. They elected to proceed. OPERATIVE COURSE: The patient was seen in his bed in the ICU. The left neck and left chest were sterilely prepped and draped. Local anesthetic was used to infiltrate the skin and subcutaneous tissues at the base of the left neck. Left subclavian vein was percutaneously accessed in an antegrade fashion utilizing a supraclavicular technique. A guidewire passed easily. A small skin candis was accomplished. A vessel dilator was used to dilate the subcutaneous tract. A 16-cm triple-lumen central venous catheter was inserted to the hub. It was sutured in place times 3. All lumens flushed easily and aspirated dark, nonpulsatile blood. A stat portable chest x-ray is pending. TRANSINT:[id number] Voice Confirmation ID: [id number] DOCUMENT ID: [id number] OPERATIVE REPORT [id number] MIR ARMENTA KHADIJAH ARMSTRONG MD at 1751 CC: ARPIT UREÑA M.D., ROBEL POLANCO and ADELITA MUJICA [id number] DICTATION DATE: 02/23/18 1040 FLORIST DESIGNER: 02/23/[address] [facility] [address] [place] [id number]
[2018-02-24] VITALS (93 sets, daily range): BP systolic 81–135; BP diastolic 45–70
[2018-02-24 05:56] LABS: BASOPHILS 0.1 % (0-2); EOSINOPHILS 0.9 % (0-7); HEMATOCRIT 27.9 % (42.0-54.0); HEMOGLOBIN 9.3 g/dL (13.5-17.5); IMMATURE GRANULOCYTES 1.1 % (0-5); LYMPHOCYTES 3.7 % (15-50); MCH 30.6 pg (26.0-34.0); MCHC 33.3 g/dL (31.0-37.0); MCV 91.8 fL (80.0-100.0); MEAN PLATELET VOLUME 10.7 fL (7.4-10.4); MONOCYTES 11.2 % (2-11); PLATELET COUNT 350 10x3/uL (130-400); RBC 3.04 10x6/uL (4.20-6.10); WBC 14.6 10x3/uL (4.8-10.8)
[2018-02-24 06:55] LABS: ALBUMIN 1.3 g/dL (3.4-5.0); BILIRUBIN - TOTAL 2.26 mg/dL (0.2-1.3); CALCIUM 7.9 mg/dL (8.5-10.1); CREATININE - SERUM 4.5 mg/dL (0.6-1.3); MAGNESIUM - SERUM 2.4 mg/dL (1.8-2.4)
[2018-02-24 07:13] LABS: ANION GAP 23.6 mmol/L (8-16); CARBON DIOXIDE 16.9 mmol/L (21.0-32.0); PHOSPHOROUS 8.7 mg/dL (2.5-4.9); POTASSIUM - SERUM 5.5 mmol/L (3.5-5.1); PROTEIN - SERUM 4.6 g/dL (6.4-8.2)
[2018-02-25] VITALS (74 sets, daily range): BP systolic 96–136; BP diastolic 46–73
[2018-02-25 05:14] LABS: BASOPHILS 0.3 % (0-2); EOSINOPHILS 1.1 % (0-7); HEMATOCRIT 26.7 % (42.0-54.0); HEMOGLOBIN 9.1 g/dL (13.5-17.5); IMMATURE GRANULOCYTES 2.4 % (0-5); LYMPHOCYTES 4.2 % (15-50); MCH 30.7 pg (26.0-34.0); MCHC 34.1 g/dL (31.0-37.0); MCV 90.2 fL (80.0-100.0); MEAN PLATELET VOLUME 10.2 fL (7.4-10.4); MONOCYTES 14.1 % (2-11); NEUTROPHILS 77.9 % (40-80); PLATELET COUNT 400 10x3/uL (130-400); RBC 2.96 10x6/uL (4.20-6.10); RDW 15.6 % (11.5-14.5); WBC 12.7 10x3/uL (4.8-10.8)
[2018-02-25 05:47] LABS: ALBUMIN 1.1 g/dL (3.4-5.0); ANION GAP 22.6 mmol/L (8-16); BILIRUBIN - TOTAL 2.09 mg/dL (0.2-1.3); CALCIUM 7.5 mg/dL (8.5-10.1); CARBON DIOXIDE 17.6 mmol/L (21.0-32.0); CREATININE - SERUM 5.6 mg/dL (0.6-1.3); DIGOXIN 2.33 ng/mL (0.90-2.00); MAGNESIUM - SERUM 2.3 mg/dL (1.8-2.4); PHOSPHOROUS 8.5 mg/dL (2.5-4.9); POTASSIUM - SERUM 5.2 mmol/L (3.5-5.1)
[2018-02-25 05:51] LABS: PROTEIN - SERUM 5.9 g/dL (6.4-8.2)
[2018-02-25] MEDS ORDERED: NORCO 10-325 TA1 TAB PO (13:33)
--- NOTE | 2018-02-25 21:06 | OP ---
PATIENT NAME: MIR ARMENTA MEDICAL RECORD: [id number] :53 LOCATION:[facility] D.CV01 ADMISSION DATE:02/12/18 SURGEON: KHADIJAH ARMSTRONG MD DATE OF OPERATION: 02/24/2018 PREOPERATIVE DIAGNOSIS: Acute renal failure in need of access for hemodialysis. POSTOPERATIVE DIAGNOSIS: Acute renal failure in need of access for hemodialysis. PROCEDURE: Insertion of right internal jugular Trialysis catheter, which is a triple-lumen non-cuffed, non-tunneled hemodialysis catheter. SURGEON: Khadijah Armstrong MD TRACTOR SWEEPER OPERATOR: None. BLOOD LOSS: 25 cc. The risks, possible complications, and alternatives to the procedure were explained to the patient's family. OPERATIVE COURSE: The patient was seen in his bedside. He was positioned in the Trendelenburg position. The right neck and right chest were sterilely prepped and draped. Local anesthetic was used to infiltrate the skin and subcutaneous tissues at the base of the right neck. I was able to access the right subclavian vein utilizing a supraclavicular technique; however, the guidewire would not thread easily. I tried to access the internal jugular vein in here. This was difficult as well. I brought the sterile ultrasound on the field, I was able to identify a compressible internal jugular vein and then was able to access it in an antegrade fashion. A guidewire was passed easily. A small skin candis was accomplished. A vessel dilator was used to dilate the subcutaneous tract. A short Trialysis catheter was inserted to the hub. It was sutured in place times 3. All lumens flushed easily and aspirated dark, nonpulsatile blood. A stat portable chest x-ray revealed no definite evidence of pneumothorax. The Trialysis catheter appeared to be well placed. A sterile dressing was applied. TRANSINT:[id number] Voice Confirmation ID: [id number] DOCUMENT ID: [id number] KHADIJAH ARMSTRONG MD at 2106 CC: ARPIT UREÑA M.D. and ADELITA MUJICA [id number] DICTATION DATE: 02/24/181914 HEALTH ACTUARY: 02/25/18 0503 ADM IN [facility] [address] [place] [address]
[2018-02-26] VITALS (96 sets, daily range): BP systolic 92–118; BP diastolic 46–64
[2018-02-26 05:37] LABS: BASOPHILS 0.3 % (0-2); HEMATOCRIT 26.1 % (42.0-54.0); HEMOGLOBIN 9.1 g/dL (13.5-17.5); LYMPHOCYTES 9.2 % (15-50); MCHC 34.9 g/dL (31.0-37.0); MCV 88.8 fL (80.0-100.0); MEAN PLATELET VOLUME 9.9 fL (7.4-10.4); MONOCYTES 12.9 % (2-11); NEUTROPHILS 69.6 % (40-80); PLATELET COUNT 412 10x3/uL (130-400); RBC 2.94 10x6/uL (4.20-6.10); WBC 12.2 10x3/uL (4.8-10.8)
[2018-02-26 06:19] LABS: ALBUMIN 1.1 g/dL (3.4-5.0); ANION GAP 24.1 mmol/L (8-16); BILIRUBIN - TOTAL 1.94 mg/dL (0.2-1.3); CALCIUM 7.2 mg/dL (8.5-10.1); CREATININE - SERUM 6.7 mg/dL (0.6-1.3); DIGOXIN 2.8 ng/mL (0.90-2.00); POTASSIUM - SERUM 5.1 mmol/L (3.5-5.1); PROTEIN - SERUM 5.9 g/dL (6.4-8.2)
[2018-02-26 15:07] LABS: FUNGUS MYCOLOGY CULTURE Preliminary report (())
[2018-02-27] VITALS (65 sets, daily range): BP systolic 96–117; BP diastolic 49–65
[2018-02-27 05:25] LABS: BASOPHILS 0.5 % (0-2); EOSINOPHILS 3.3 % (0-7); HEMATOCRIT 25.1 % (42.0-54.0); HEMOGLOBIN 8.8 g/dL (13.5-17.5); IMMATURE GRANULOCYTES 11.7 % (0-5); LYMPHOCYTES 9.6 % (15-50); MCH 30.7 pg (26.0-34.0); MCHC 35.1 g/dL (31.0-37.0); MCV 87.5 fL (80.0-100.0); MEAN PLATELET VOLUME 9.7 fL (7.4-10.4); MONOCYTES 12.6 % (2-11); NEUTROPHILS 62.3 % (40-80); PLATELET COUNT 410 10x3/uL (130-400); RBC 2.87 10x6/uL (4.20-6.10); RDW 15.7 % (11.5-14.5); WBC 11.7 10x3/uL (4.8-10.8)
[2018-02-27 06:52] LABS: PHOSPHOROUS 11.6 mg/dL (2.5-4.9)
[2018-02-27 06:53] LABS: CREATININE - SERUM 8.1 mg/dL (0.6-1.3); POTASSIUM - SERUM 5.4 mmol/L (3.5-5.1)
[2018-02-27 06:54] LABS: ANION GAP 319.2 mmol/L (8-16); CALCIUM 6.1 mg/dL (8.5-10.1); CARBON DIOXIDE 17.8 mmol/L (21.0-32.0)
[2018-02-27 06:55] LABS: BILIRUBIN - TOTAL 1.74 mg/dL (0.2-1.3); PROTEIN - SERUM 4.2 g/dL (6.4-8.2)
[2018-02-27 06:56] LABS: ALBUMIN 1.2 g/dL (3.4-5.0); DIGOXIN 1.61 ng/mL (0.90-2.00)
--- NOTE | 2018-02-28 11:21 | MORECARE ---
CASE MANAGEMENT DISCHARGE SUMMARY PATIENT: MIR ARMENTA UNIT: [id number] ADM DATE: 02/12/18 AGE: 62 : 53 SEX: M ROOM/BED: D[facility] AUTHOR: KATHERINE,DOC PHYSICIAN: REFERRING PHYSICIAN: ARPIT UREÑA M.D. DATE OF SERVICE: 02/28/18 Discharge Plan Patient Name: MIR ARMENTA Facility: [facility]:[place] : 1955 Planned Disposition: Anticipated Discharge Date: Discharge Date: 02/27/2018 Expected LOS: Initial Reviewer: [email or web address] Initial Review Date: 02/21/2018 Generated: 02/28/18 12:21 pm Comments DCP- Discharge Planning Updated by [id number]: Rosa Karimi on 02/21/18 10:[address] Patient Name: MIR ARMENTA Admission Status: ER Accout number: [id number] Admission Date: 02-12-2018 : 1955 Admission Diagnosis:STEMI INVOLVING OTH CORONARY ARTERY OF INFERIOR WALL Attending: ARPIT UREÑA Current LOS: 9 Anticipated DC Date: Planned Disposition: Primary Insurance: MEDICARE A & B Discharge Planning Comments: CM met with and daughter at bedside. Patient is currently on vent and sedated. Patient lived at home with his and was independent of all daily activities. Uncertain at this point what discharge disposition will be LTACH/ Rehab/ SNF? CM will continue to follow and assist as needed with discharge planning / needs. Technical Systems Architect: Rosa Karimi DCPIA - Discharge Planning Initial Assessment Updated by [email or web address]: Rosa Karimi on 02/21/18 11:02 am * Is the patient Alert and Oriented? No * How many steps to enter\exit or inside your home? * PCP Tonja * Pharmacy [facility] * Preadmission Environment Home with Family * ADLs Independent * Equipment None * List name and contact numbers for known caregivers / representatives who currently or will assist patient after discharge: Anitra Armenta [phone], * Verbal permission to speak to the caregivers and representatives has been obtained from the patient. N/A * Community resources currently utilized None * Additional services required to return to the preadmission environment? No * Can the patient safely return to the preadmission environment? Yes * Has this patient been hospitalized within the prior 30 days at any hospital? No Last DP export: 02/21/18 10:15 Patient Name: MIR ARMENTA Page 75675 at 1121 All edits/amendments must be made on the electronic document DICTATION DATE: 02/28/18 112 SURGERY TECHNICIAN: JAISON 02/28/181120 RPT#: [id number] DC DATE:02/27/18 STATUS: DIS IN [facility] [address] [place] [address] END OF REPORT
--- NOTE | 2018-02-28 15:07 | OP ---
PATIENT NAME: MIR MOLINA MEDICAL RECORD: [id number] :53 LOCATION:[facility].CV01 ADMISSION DATE:02/12/18 SURGEON: ADRIANA WHITT MD DATE OF OPERATION: 02/17/2018 PROCEDURE: Fiberoptic bronchoscopy. INDICATION: Mr. Molina is a 62-year-old gentleman who has cardiopulmonary arrest on mechanical ventilation and bilateral pneumonia, left worse than the right. The chest radiograph showing worsening pneumonia on the left side. Fiberoptic bronchoscopy was carried out to inspect the airway for any mucus plugging as well as to obtain specimen for culture and sensitivity. PROCEDURE IN DETAIL: The bronchoscope was passed through the ET tube. The karthik was sharp. In the right main bronchus there was a thick yellowish secretion. There were bronchitic changes especially in the lower lobe segments. No endobronchial lesion was seen. There was also yellowish secretion in the left main bronchus. There were severe bronchitic changes in the left upper lobe, left lower lobe segment. No endobronchial lesion was seen. Specimen washing was obtained and sent for routine culture and sensitivity, AFB and fungus and cytology. The patient tolerated the procedure very well. TRANSINT:[id number] Voice Confirmation ID: [id number] DOCUMENT ID: [id number] ADRIANA WHITT MD at 1507 CC: [id number] DICTATION DATE: 02/17/18 1130 TEACHER'S ASSISTANT: 02/17/18 1149 DIS IN 02/27/[address] [address]
== END 2018-02-27 18:32 | DRG 246 ==
LOC: D.ER 00:28 → D.CVICU 02:39 → D.SDCHOLD 02-15 18:28 → D.CVICU 02-15 18:30
PROVIDERS: Family Medicine; Internal Medicine Nephrology; Internal Medicine Pulmonary Disease; ADMIT Internal Medicine Cardiovascular Disease
PROC: B2181ZZ Fluoroscopy of Left Internal Mammary Bypass Graft using Low Osmolar Contrast (ICD-10-PCS; 2018-02-12)
PROC: 5A1223Z Performance of Cardiac Pacing, Continuous (ICD-10-PCS; 2018-02-12)
PROC: 5A1955Z Respiratory Ventilation, Greater than 96 Consecutive Hours (ICD-10-PCS; 2018-02-12)
PROC: 0BH17EZ Insertion of Endotracheal Airway into Trachea, Via Natural or Artificial Opening (ICD-10-PCS; 2018-02-12)
PROC: 027034Z Dilation of Coronary Artery, One Artery with Drug-eluting Intraluminal Device, Percutaneous Approach (ICD-10-PCS; 2018-02-12 01:07)
PROC: 05HM33Z Insertion of Infusion Device into Right Internal Jugular Vein, Percutaneous Approach (ICD-10-PCS; principal; 2018-02-14)
PROC: 0B978ZZ Drainage of Left Main Bronchus, Via Natural or Artificial Opening Endoscopic (ICD-10-PCS; 2018-02-17)
PROC: 0B938ZZ Drainage of Right Main Bronchus, Via Natural or Artificial Opening Endoscopic (ICD-10-PCS; 2018-02-17)
PROC: 05H633Z Insertion of Infusion Device into Left Subclavian Vein, Percutaneous Approach (ICD-10-PCS; 2018-02-22)
PROC: 05HM33Z Insertion of Infusion Device into Right Internal Jugular Vein, Percutaneous Approach (ICD-10-PCS; 2018-02-24)
DX: I21.19 ST elevation (STEMI) myocardial infarction involving other coronary artery of inferior wall (principal); J15.0 Pneumonia due to Klebsiella pneumoniae; J15.211 Pneumonia due to Methicillin susceptible Staphylococcus aureus; J96.01 Acute respiratory failure with hypoxia; J96.02 Acute respiratory failure with hypercapnia; I50.21 Acute systolic (congestive) heart failure; N17.0 Acute kidney failure with tubular necrosis; K72.00 Acute and subacute hepatic failure without coma; E87.4 Mixed disorder of acid-base balance; E87.1 Hypo-osmolality and hyponatremia; R57.0 Cardiogenic shock; E11.9 Type 2 diabetes mellitus without complications; I10 Essential (primary) hypertension; I25.10 Atherosclerotic heart disease of native coronary artery without angina pectoris; R00.1 Bradycardia, unspecified; I34.0 Nonrheumatic mitral (valve) insufficiency; M79.89 Other specified soft tissue disorders; D64.9 Anemia, unspecified; Z66 Do not resuscitate; I95.9 Hypotension, unspecified; E87.5 Hyperkalemia